=== PATIENT | male | born 1970 | race Caucasian/White ===

== ENCOUNTER 2023-04-23 07:15 | Day surgery (SDC) | payer BC ==
[2023-04-17 10:35] VITALS: BMI 32.8
[2023-04-23] MEDS ORDERED: Midazolam HCl 2 mg/2 ml Vial ONE (09:17)
[2023-04-23] MEDS ORDERED: Lidocaine 1% PF 5 ML VIAL ONE (09:17)
[2023-04-23] MEDS ORDERED: Dexamethasone 20 MG/5 ML VIAL ONE (09:17)
[2023-04-23] MEDS ORDERED: Fentanyl 250 MCG/5 ML VIAL ONE (09:17)
[2023-04-23] MEDS ORDERED: Ondansetron PF 4 MG/2 ML Vial ONE (09:17)
[2023-04-23] MEDS ORDERED: Rocuronium Bromide 10 MG/ML (10ML VIAL) ONE (09:17)
[2023-04-23] MEDS ORDERED: PROPOFOL 20 ML ONE ×2 (09:17)
[2023-04-23] MEDS ORDERED: EPINEPHrine 1 MG/ML VIAL ONE (09:38)
[2023-04-23] MEDS ORDERED: oFLOXacin 0.3% Opth 5 ML BOT ONE (09:38)
[2023-04-23] MEDS ORDERED: Mupirocin 2% Ointment 22 GM Tube ONE (09:38)
[2023-04-23] MEDS ORDERED: CEFAZOLIN 2 GM VIAL ONE (09:38)
[2023-04-23] MEDS ORDERED: Lidocaine 1% w/Epinephrine 1:100K 20 ML VIAL ONE (11:09)
[2023-04-23] MEDS ORDERED: fentaNYL 50 mcg/mL 1 mL Vial ONE (13:12)
[2023-04-23] MEDS ORDERED: HYDROcodone/Acetaminophen 5/325 mg Tablet ONE (14:29)
== END 2023-04-23 15:10 | disposition home or self-care (01) ==
LOC: CSHSDC 07:15
PROVIDERS: ATTEND Otolaryngology Plastic Surgery within the Head & Neck
PROC: 0NB60ZZ Excision of Left Temporal Bone, Open Approach (ICD-10-PCS; principal; 2023-04-23)
DX: H69.83 Other specified disorders of Eustachian tube, bilateral (principal); H71.93 Unspecified cholesteatoma, bilateral; H65.23 Chronic serous otitis media, bilateral; H90.6 Mixed conductive and sensorineural hearing loss, bilateral; H69.93 Unspecified Eustachian tube disorder, bilateral; G47.30 Sleep apnea, unspecified; I10 Essential (primary) hypertension; E66.9 Obesity, unspecified; Z79.899 Other long term (current) drug therapy
CPT/HCPCS: 88304; C1713; C1781; J0171; J1100; J2250; J2405; J2704; J3010; L8699